=== PATIENT | female | born 1955 | race Caucasian/White ===

== ENCOUNTER 2018-03-18 17:41 | Emergency (ER) | payer SELFPAY ==
[~2018-03-18] VITALS: Ht 152.4 cm; Wt 93.0 kg
[2018-03-18] MEDS ORDERED: VANCOMYCIN 1 G PREMIX 200 ML IV NR (23:15)
[2018-03-18 23:53] LABS: HEMATOCRIT 39.3 % (36.0-48.0); HEMOGLOBIN 12.8 g/dL (12.0-16.0); MEAN CORPUSCULAR HEMOGLOBIN 28.4 pg (28.0-32.0); PLATELET 221 x1000/uL (130-400); RED BLOOD CELL COUNT 4.52 mill/uL (4.2-5.4); RED CELL DISTRIBUTION WIDTH 13.8 % (11.6-14.6)
[2018-03-18 23:58] LABS: CHLORIDE 100 mEq/L (98-107)
[2018-03-19 00:08] LABS: BETA HYDROXYBUTYRATE 0.8 mMol/L (0.0-0.3)
[2018-03-19] MEDS ORDERED: KETOROLAC 30MG/ML VIAL IV ONE (01:00)
[2018-03-19 02:08] VITALS: BP 175/81
== END 2018-03-19 09:47 | disposition home or self-care (01) ==
LOC: ER 03-19 07:19
DX: L03.811 Cellulitis of head [any part, except face] (principal); E11.65 Type 2 diabetes mellitus with hyperglycemia; I10 Essential (primary) hypertension; Z98.890 Other specified postprocedural states
CPT/HCPCS: 36415; 80053; 82010; 82962; 83605; 85027; 87040; 96365; 96366; 96375; 99283; J1885; J3370